=== PATIENT | female | born 1995 | race Caucasian/White ===

== ENCOUNTER 2020-07-03 01:59 | Emergency (ER) | payer OTHER ==
[~2020-07-03] VITALS: Ht 167.6 cm; Wt 72.0 kg
[2020-07-03] MEDS ORDERED: LORazepam 2 MG/ML VIAL IVP ONE (02:30)
[2020-07-03] MEDS ORDERED: HALOPERIDOL LACTATE 5 MG/ML VIAL ONE (02:55)
[2020-07-03] MEDS ORDERED: DiphenhydrAMINE HCL 50 MG/ML VIAL ONE (02:55)
[2020-07-03] MEDS ORDERED: DiphenhydrAMINE HCL 50 MG/ML VIAL IM ONE (03:00)
[2020-07-03] MEDS ORDERED: HALOPERIDOL LACTATE 5 MG/ML VIAL IM ONE (03:00)
[2020-07-03] MEDS ORDERED: LORazepam 2 MG/ML VIAL IM ONE (03:00)
[2020-07-03] MEDS ORDERED: GABA-1216 PO (03:27)
[2020-07-03] MEDS ORDERED: LITH300C3 PO (03:27)
[2020-07-03] MEDS ORDERED: ChlorproMAZINE HCL 50 MG/2 ML AMP IM ONE (03:45)
[2020-07-03 04:12] LABS: BASOPHILS % (AUTO) 0.3 % (0.0-2.0); EOSINOPHILS % (AUTO) 0.1 % (1.0-6.0); HEMATOCRIT 37.7 % (36-46); LYMPHOCYTES # (AUTO) 1.5 K/uL (1.0-4.8); LYMPHOCYTES % (AUTO) 21.5 % (22.0-44.0); MEAN CORPUSCULAR HEMOGLOBIN 26.2 pg (26.0-34.0); MEAN CORPUSCULAR HGB CONC 31.7 G/dL (31.0-37.0); MEAN CORPUSCULAR VOLUME 82 fL (80-100); MONOCYTES # (AUTO) 0.4 K/uL (0.1-1.0); MONOCYTES % (AUTO) 5.6 % (2.0-9.0); NEUTROPHILS # (AUTO) 4.9 K/uL (1.8-7.7); NEUTROPHILS % (AUTO) 72.5 % (40.0-70.0); PLATELET COUNT (AUTO) 373 K/uL (150-450); RED BLOOD CELL COUNT(AUTO) 4.57 MIL/uL (4.00-5.20); RED CELL DISTRIBUTION WIDTH 17.4 % (11.5-14.5)
[2020-07-03 04:14] LABS: ANION GAP 13 mmol/L (8-16); CALCIUM, TOTAL 9.6 mg/dL (8.8-10.5); CARBON DIOXIDE 22 mmol/L (22-29); CHLORIDE 101 mmol/L (98-107); CREATININE 1.01 mg/dL (0.60-1.30); GLOMERULAR FILTR. RATE CALC > 60 mL/min (>60); GLUCOSE,RANDOM 105 mg/dL (70-110); POTASSIUM 3.3 mmol/L (3.5-5.1); SODIUM SERUM 136 mmol/L (136-145); UREA NITROGEN, BLOOD 4 mg/dL (7-18)
[2020-07-03 04:20] LABS: ALANINE AMINOTRANSFERASE 34 U/L (12-78); ALBUMIN 3.8 g/dL (3.4-5.0); ALKALINE PHOSPHATASE 122 U/L (46-116); ASPARTATE AMINOTRANSFERASE 26 U/L (15-37); BILIRUBIN,TOTAL 0.6 mg/dL (0.1-1.0); TOTAL PROTEIN, SERUM 7.7 g/dL (6.4-8.2)
[2020-07-03 11:32] VITALS: BP 122/75
[2020-07-03] MEDS: POTASSIUM CHLORIDE 20 MEQ ER TABLET PO ONE ×2 (11:46→11:50)
== END 2020-07-03 13:08 | disposition home or self-care (01) ==
LOC: EMS 02:01
DX: F22 Delusional disorders (principal); E87.6 Hypokalemia; F15.10 Other stimulant abuse, uncomplicated; F12.90 Cannabis use, unspecified, uncomplicated; F17.290 Nicotine dependence, other tobacco product, uncomplicated
CPT/HCPCS: 80053; 85025; 96372; 99291; G0480; J1200; J1630; J2060; J3230

== ENCOUNTER 2020-11-22 21:02 | Emergency (ER) | payer OTHER ==
[~2020-11-22] VITALS: Ht 167.6 cm; Wt 65.9 kg
[~2020-11-22 21:02] MED LIST: GABA-1216 PO; LITH300C3 PO
[2020-11-22] MEDS ORDERED: OLAN7.5T22 PO (21:46)
[2020-11-22] MEDS ORDERED: DIVA-112 PO (21:46)
[2020-11-22 21:57] VITALS: BP 124/71
[2020-11-22 23:46] LABS: BASOPHILS % (AUTO) 0.2 % (0.0-2.0); EOSINOPHILS % (AUTO) 0.4 % (1.0-6.0); HEMATOCRIT 34.5 % (36-46); HEMOGLOBIN 11.1 g/dL (12.0-16.0); LYMPHOCYTES # (AUTO) 3.6 K/uL (1.0-4.8); LYMPHOCYTES % (AUTO) 29.9 % (22.0-44.0); MEAN CORPUSCULAR HEMOGLOBIN 27.1 pg (26.0-34.0); MEAN CORPUSCULAR HGB CONC 32.1 G/dL (31.0-37.0); MEAN CORPUSCULAR VOLUME 85 fL (80-100); MONOCYTES # (AUTO) 1.2 K/uL (0.1-1.0); NEUTROPHILS # (AUTO) 7.2 K/uL (1.8-7.7); NEUTROPHILS % (AUTO) 59.5 % (40.0-70.0); PLATELET COUNT (AUTO) 324 K/uL (150-450); RED BLOOD CELL COUNT(AUTO) 4.08 MIL/uL (4.00-5.20); RED CELL DISTRIBUTION WIDTH 16.4 % (11.5-14.5)
[2020-11-23 00:04] LABS: ANION GAP 6 mmol/L (8-16); CALCIUM, TOTAL 8.6 mg/dL (8.8-10.5); CARBON DIOXIDE 29 mmol/L (22-29); CHLORIDE 105 mmol/L (98-107); CREATININE 0.91 mg/dL (0.60-1.30); GLOMERULAR FILTR. RATE CALC > 60 mL/min (>60); GLUCOSE,RANDOM 80 mg/dL (70-110); POTASSIUM 4.1 mmol/L (3.5-5.1); SODIUM SERUM 140 mmol/L (136-145); UREA NITROGEN, BLOOD 12 mg/dL (7-18)
[2020-11-23 00:15] LABS: ALANINE AMINOTRANSFERASE 13 U/L (12-78); ALBUMIN 3.1 g/dL (3.4-5.0); ALKALINE PHOSPHATASE 90 U/L (46-116); ASPARTATE AMINOTRANSFERASE 14 U/L (15-37); BILIRUBIN,TOTAL 0.2 mg/dL (0.1-1.0); HCG,QUANTITATIVE < 1 mIU/mL (0-6); TOTAL PROTEIN, SERUM 7.2 g/dL (6.4-8.2)
== END 2020-11-23 | disposition left against medical advice (07) ==
LOC: EMS 21:04
DX: F22 Delusional disorders (principal); Z53.21 Procedure and treatment not carried out due to patient leaving prior to being seen by health care provider
CPT/HCPCS: 80053; 84702; 85025; G0480

== ENCOUNTER 2021-01-03 10:43 | Emergency (ER) | payer MEDICAID, OTHER ==
[~2021-01-03] VITALS: Ht 160 cm; Wt 65.0 kg
[~2021-01-03 10:43] MED LIST changes: +DIVA-112 PO; +OLAN7.5T22 PO
[2021-01-03 11:47] LABS: BASOPHILS % (AUTO) 0.9 % (0.0-2.0); EOSINOPHILS % (AUTO) 0.9 % (1.0-6.0); HEMATOCRIT 39.8 % (36-46); HEMOGLOBIN 12.6 g/dL (12.0-16.0); LYMPHOCYTES # (AUTO) 1.7 K/uL (1.0-4.8); MEAN CORPUSCULAR HEMOGLOBIN 27.2 pg (26.0-34.0); MEAN CORPUSCULAR HGB CONC 31.7 G/dL (31.0-37.0); MEAN CORPUSCULAR VOLUME 86 fL (80-100); MONOCYTES % (AUTO) 9.3 % (2.0-9.0); NEUTROPHILS # (AUTO) 7.8 K/uL (1.8-7.7); NEUTROPHILS % (AUTO) 72.9 % (40.0-70.0); PLATELET COUNT (AUTO) 304 K/uL (150-450); RED BLOOD CELL COUNT(AUTO) 4.64 MIL/uL (4.00-5.20); RED CELL DISTRIBUTION WIDTH 14.8 % (11.5-14.5)
[2021-01-03 11:55] LABS: ANION GAP 10 mmol/L (8-16); CALCIUM, TOTAL 9.7 mg/dL (8.8-10.5); CARBON DIOXIDE 24 mmol/L (22-29); CHLORIDE 103 mmol/L (98-107); CREATININE 0.77 mg/dL (0.60-1.30); GLOMERULAR FILTR. RATE CALC > 60 mL/min (>60); GLUCOSE,RANDOM 98 mg/dL (70-110); SODIUM SERUM 137 mmol/L (136-145); UREA NITROGEN, BLOOD 15 mg/dL (7-18)
[2021-01-03 12:04] LABS: ALANINE AMINOTRANSFERASE 45 U/L (12-78); ALBUMIN 3.9 g/dL (3.4-5.0); ALKALINE PHOSPHATASE 98 U/L (46-116); ASPARTATE AMINOTRANSFERASE 56 U/L (15-37); BILIRUBIN,TOTAL 0.5 mg/dL (0.1-1.0); HCG,QUANTITATIVE < 1 mIU/mL (0-6); TOTAL PROTEIN, SERUM 7.6 g/dL (6.4-8.2)
[2021-01-03 12:05] LABS: VALPROIC ACID < 3 mcg/mL (50-100)
[2021-01-03 12:08] LABS: LITHIUM < 0.20 mmol/L (0.60-1.20)
[2021-01-03 14:20] VITALS: BP 104/81
== END 2021-01-03 14:45 | disposition home or self-care (01) ==
LOC: EMS 10:47
DX: F25.9 Schizoaffective disorder, unspecified (principal); F31.9 Bipolar disorder, unspecified; F12.90 Cannabis use, unspecified, uncomplicated; F15.90 Other stimulant use, unspecified, uncomplicated; Z79.899 Other long term (current) drug therapy
CPT/HCPCS: 36415; 80053; 80164; 80178; 84702; 85025; 99284; G0480

== ENCOUNTER 2021-01-29 15:25 | Emergency (ER) | payer MEDICAID ==
[~2021-01-29] VITALS: Ht 167.6 cm; Wt 68.2 kg
[2021-01-29 15:42] VITALS: BP 120/65
== END 2021-01-29 17:37 | disposition left against medical advice (07) ==
LOC: EMS 15:30
DX: Z04.6 Encounter for general psychiatric examination, requested by authority (principal); Z53.21 Procedure and treatment not carried out due to patient leaving prior to being seen by health care provider

== ENCOUNTER 2021-06-14 11:27 | Emergency (ER) | payer MEDICAID ==
[~2021-06-14] VITALS: Ht 167.6 cm; Wt 77.3 kg
[2021-06-14] MEDS ORDERED: GABAPENTIN 100 MG CAPSULE PO ONE (12:30)
[2021-06-14] MEDS ORDERED: QUET300T2 PO (12:33)
[2021-06-14] MEDS ORDERED: RISP4TAB73 PO (12:35)
[2021-06-14] MEDS ORDERED: RisperiDONE 4 MG TABLET PO ONE (12:45)
[2021-06-14 14:14] VITALS: BP 125/65
== END 2021-06-14 14:16 | disposition home or self-care (01) ==
LOC: EMS 11:27
DX: F25.9 Schizoaffective disorder, unspecified (principal); F31.9 Bipolar disorder, unspecified; F12.90 Cannabis use, unspecified, uncomplicated; F15.90 Other stimulant use, unspecified, uncomplicated; Z79.899 Other long term (current) drug therapy; Z76.0 Encounter for issue of repeat prescription
CPT/HCPCS: 99283

== ENCOUNTER 2021-08-14 17:52 | Emergency (ER) | payer MEDICAID, OTHER ==
[~2021-08-14] VITALS: Ht 167.6 cm; Wt 85.0 kg
[~2021-08-14 17:52] MED LIST changes: +QUET300T2 PO; +RISP4TAB73 PO
[2021-08-14 18:01] VITALS: BP 139/86
[2021-08-14 19:19] LABS: BASOPHILS % (AUTO) 0.5 % (0.0-2.0); EOSINOPHILS % (AUTO) 0.9 % (1.0-6.0); HEMATOCRIT 38.9 % (36-46); HEMOGLOBIN 12.9 g/dL (12.0-16.0); LYMPHOCYTES # (AUTO) 2.7 K/uL (1.0-4.8); LYMPHOCYTES % (AUTO) 43.4 % (22.0-44.0); MEAN CORPUSCULAR HEMOGLOBIN 26.6 pg (26.0-34.0); MEAN CORPUSCULAR HGB CONC 33.1 G/dL (31.0-37.0); MEAN CORPUSCULAR VOLUME 80 fL (80-100); MONOCYTES # (AUTO) 0.5 K/uL (0.1-1.0); MONOCYTES % (AUTO) 8.7 % (2.0-9.0); NEUTROPHILS # (AUTO) 2.9 K/uL (1.8-7.7); NEUTROPHILS % (AUTO) 46.5 % (40.0-70.0); PLATELET COUNT (AUTO) 319 K/uL (150-450); RED BLOOD CELL COUNT(AUTO) 4.84 MIL/uL (4.00-5.20); RED CELL DISTRIBUTION WIDTH 16.4 % (11.5-14.5)
[2021-08-14 19:24] LABS: APPEARANCE,URINE CLEAR (CLEAR); BILIRUBIN,URINE NEGATIVE (NEGATIVE); GLUCOSE, URINE (UA) NEGATIVE (NEGATIVE); KETONES,URINE NEGATIVE (NEGATIVE); LEUKOCYTE ESTERASE ,URINE NEGATIVE (NEGATIVE); NITRATE,URINE NEGATIVE (NEGATIVE); OCCULT BLOOD,URINE NEGATIVE (NEGATIVE); PH,URINE 5.5 (5.0-8.0); PROTEIN,URINE TRACE mg/dL (NEGATIVE); SPECIFIC GRAVITIY, URINE 1.036 (1.003-1.030); UROBILINOGEN,URINE <=1.0 mg/dL (<=1.0)
[2021-08-14 19:25] LABS: ANION GAP 3 mmol/L (8-16); CALCIUM, TOTAL 9.3 mg/dL (8.8-10.5); CARBON DIOXIDE 30 mmol/L (22-29); CHLORIDE 108 mmol/L (98-107); GLOMERULAR FILTR. RATE CALC > 60 mL/min (>60); GLUCOSE,RANDOM 83 mg/dL (70-110); POTASSIUM 3.8 mmol/L (3.5-5.1); SODIUM SERUM 141 mmol/L (136-145); UREA NITROGEN, BLOOD 15 mg/dL (7-18)
[2021-08-14 19:30] LABS: ALANINE AMINOTRANSFERASE 15 U/L (12-78); ALBUMIN 3.7 g/dL (3.4-5.0); ALKALINE PHOSPHATASE 94 U/L (46-116); ASPARTATE AMINOTRANSFERASE 16 U/L (15-37); BILIRUBIN,TOTAL 0.4 mg/dL (0.1-1.0); TOTAL PROTEIN, SERUM 7.5 g/dL (6.4-8.2)
== END 2021-08-14 20:11 | disposition home or self-care (01) ==
LOC: EMS 17:59
DX: R00.2 Palpitations (principal); T50.995A Adverse effect of other drugs, medicaments and biological substances, initial encounter; F31.9 Bipolar disorder, unspecified; F20.9 Schizophrenia, unspecified; F12.90 Cannabis use, unspecified, uncomplicated; F15.90 Other stimulant use, unspecified, uncomplicated; Z79.899 Other long term (current) drug therapy; Y92.89 Other specified places as the place of occurrence of the external cause
CPT/HCPCS: 80053; 81003; 85025; 93005; 99284

== ENCOUNTER 2021-08-31 19:53 | Emergency (ER) | payer MEDICAID, OTHER ==
[~2021-08-31] VITALS: Ht 167.6 cm; Wt 198.0 kg
[2021-08-31 20:04] VITALS: BP 127/89
[2021-08-31] MEDS ORDERED: ALBUTEROL SULFATE 2.5 MG/0.5 ML NEB SOLUTION NEB ONE (21:30)
[2021-08-31 21:42] LABS: APPEARANCE,URINE CLEAR (CLEAR); BILIRUBIN,URINE NEGATIVE (NEGATIVE); GLUCOSE, URINE (UA) NEGATIVE (NEGATIVE); KETONES,URINE TRACE mg/dL (NEGATIVE); LEUKOCYTE ESTERASE ,URINE SMALL (NEGATIVE); NITRATE,URINE NEGATIVE (NEGATIVE); OCCULT BLOOD,URINE NEGATIVE (NEGATIVE); PH,URINE 5.5 (5.0-8.0); PROTEIN,URINE TRACE mg/dL (NEGATIVE); SPECIFIC GRAVITIY, URINE 1.032 (1.003-1.030); UROBILINOGEN,URINE <=1.0 mg/dL (<=1.0)
[2021-08-31 21:58] LABS: BACTERIA,URINE Moderate /HPF (None Seen); RBC,URINE 0-2 /HPF (0-2); SQUAMOUS EPITHELIAL CELL,UR Moderate /LPF (None Seen)
[2021-08-31 22:02] LABS: AMPHET/METH SCREEN,URINE NEGATIVE (NEGATIVE); BARBITURATE SCREEN, URINE NEGATIVE (NEGATIVE); BENZODIAZEPINES SCREEN,URINE NEGATIVE (NEGATIVE); CANNABINOID SCREEN,URINE NEGATIVE (NEGATIVE); COCAINE SCREEN,URINE NEGATIVE (NEGATIVE); METHADONE SCREEN, URINE NEGATIVE (NEGATIVE); OPIATE SCREEN,URINE NEGATIVE (NEGATIVE); PHENCYCLIDINE SCREEN,URINE NEGATIVE (NEGATIVE)
[2021-08-31] MEDS ORDERED: ALBU8.5H8 IH (22:34)
== END 2021-08-31 23:06 | disposition home or self-care (01) ==
LOC: EMS 19:54
DX: F41.9 Anxiety disorder, unspecified (principal); R06.02 Shortness of breath; T45.0X5A Adverse effect of antiallergic and antiemetic drugs, initial encounter; F20.9 Schizophrenia, unspecified; F31.9 Bipolar disorder, unspecified; F12.90 Cannabis use, unspecified, uncomplicated; F15.90 Other stimulant use, unspecified, uncomplicated; F17.210 Nicotine dependence, cigarettes, uncomplicated; Z79.899 Other long term (current) drug therapy; Y92.89 Other specified places as the place of occurrence of the external cause
CPT/HCPCS: 71046; 81001; 84703; 87086; 94640; 99284; J7613

== ENCOUNTER 2021-10-19 20:54 | Emergency (ER) | payer MEDICAID, OTHER ==
[~2021-10-19] VITALS: Ht 167.6 cm; Wt 90.0 kg
[~2021-10-19 20:54] MED LIST changes: +ALBU8.5H8 IH
[2021-10-19] MEDS ORDERED: SODIUM CHLORIDE 0.9% 1,000 ML IV ONE (22:15)
[2021-10-19 22:24] LABS: BASOPHILS % (AUTO) 0.5 % (0.0-2.0); EOSINOPHILS % (AUTO) 0.6 % (1.0-6.0); HEMATOCRIT 37.1 % (36-46); HEMOGLOBIN 12.3 g/dL (12.0-16.0); LYMPHOCYTES # (AUTO) 2.7 K/uL (1.0-4.8); LYMPHOCYTES % (AUTO) 36.7 % (22.0-44.0); MEAN CORPUSCULAR HEMOGLOBIN 27.3 pg (26.0-34.0); MEAN CORPUSCULAR HGB CONC 33.2 G/dL (31.0-37.0); MEAN CORPUSCULAR VOLUME 82 fL (80-100); MONOCYTES # (AUTO) 0.5 K/uL (0.1-1.0); MONOCYTES % (AUTO) 6.6 % (2.0-9.0); NEUTROPHILS % (AUTO) 55.6 % (40.0-70.0); PLATELET COUNT (AUTO) 346 K/uL (150-450); RED BLOOD CELL COUNT(AUTO) 4.51 MIL/uL (4.00-5.20); RED CELL DISTRIBUTION WIDTH 13.8 % (11.5-14.5)
[2021-10-19 22:32] LABS: ANION GAP 9 mmol/L (8-16); CALCIUM, TOTAL 9.5 mg/dL (8.8-10.5); CARBON DIOXIDE 30 mmol/L (22-29); CHLORIDE 100 mmol/L (98-107); CREATININE 0.78 mg/dL (0.60-1.30); GLOMERULAR FILTR. RATE CALC > 60 mL/min (>60); GLUCOSE,RANDOM 109 mg/dL (70-110); POTASSIUM 3.5 mmol/L (3.5-5.1); SODIUM SERUM 139 mmol/L (136-145); UREA NITROGEN, BLOOD 9 mg/dL (7-18)
[2021-10-19 22:44] LABS: LITHIUM < 0.20 mmol/L (0.60-1.20)
[2021-10-19 22:47] LABS: ALANINE AMINOTRANSFERASE 18 U/L (12-78); ALBUMIN 3.9 g/dL (3.4-5.0); ALKALINE PHOSPHATASE 100 U/L (46-116); ASPARTATE AMINOTRANSFERASE 18 U/L (15-37); BILIRUBIN,TOTAL 0.3 mg/dL (0.1-1.0); HCG,QUANTITATIVE < 1 mIU/mL (0-6); THYROID STIMULATING HORMONE 1.77 uIU/mL (0.36-3.74); TOTAL PROTEIN, SERUM 7.7 g/dL (6.4-8.2)
[2021-10-19 22:48] LABS: VALPROIC ACID < 3 mcg/mL (50-100)
[2021-10-19] MEDS ORDERED: ONDANSETRON HCL 4 MG TABLET PO ONE (23:45)
[2021-10-20 00:24] LABS: COVID AG,FIA SOURCE NASOPHARYNGEAL
[2021-10-20 00:50] LABS: APPEARANCE,URINE CLEAR (CLEAR); BILIRUBIN,URINE NEGATIVE (NEGATIVE); GLUCOSE, URINE (UA) NEGATIVE (NEGATIVE); KETONES,URINE NEGATIVE (NEGATIVE); LEUKOCYTE ESTERASE ,URINE NEGATIVE (NEGATIVE); NITRATE,URINE NEGATIVE (NEGATIVE); OCCULT BLOOD,URINE NEGATIVE (NEGATIVE); PH,URINE 6.5 (5.0-8.0); PROTEIN,URINE NEGATIVE (NEGATIVE); SPECIFIC GRAVITIY, URINE 1.005 (1.003-1.030); UROBILINOGEN,URINE <=1.0 mg/dL (<=1.0)
[2021-10-20 00:57] LABS: AMPHET/METH SCREEN,URINE NEGATIVE (NEGATIVE); BARBITURATE SCREEN, URINE NEGATIVE (NEGATIVE); BENZODIAZEPINES SCREEN,URINE NEGATIVE (NEGATIVE); CANNABINOID SCREEN,URINE NEGATIVE (NEGATIVE); COCAINE SCREEN,URINE NEGATIVE (NEGATIVE); METHADONE SCREEN, URINE NEGATIVE (NEGATIVE); OPIATE SCREEN,URINE NEGATIVE (NEGATIVE); PHENCYCLIDINE SCREEN,URINE NEGATIVE (NEGATIVE)
[2021-10-20 01:30] VITALS: BP 119/59
== END 2021-10-20 01:42 | disposition home or self-care (01) ==
LOC: EMS 20:56
DX: R55 Syncope and collapse (principal); F41.9 Anxiety disorder, unspecified; F25.9 Schizoaffective disorder, unspecified; R51.9 Headache, unspecified; F31.9 Bipolar disorder, unspecified; F17.210 Nicotine dependence, cigarettes, uncomplicated; F12.90 Cannabis use, unspecified, uncomplicated; F15.90 Other stimulant use, unspecified, uncomplicated; Z20.822 Contact with and (suspected) exposure to COVID-19
CPT/HCPCS: 36415; 70450; 80053; 80164; 80178; 80307; 81003; 84443; 84702; 85025; 87426; 93005; 96360; 99285; G0480; J7030; Q0162

== ENCOUNTER 2021-11-08 16:24 | Emergency (ER) | payer MEDICAID ==
[~2021-11-08] VITALS: Ht 167.6 cm; Wt 86.4 kg
[2021-11-08 16:55] VITALS: BP 112/76
[2021-11-08] MEDS ORDERED: PALI39DI IM (16:58)
[2021-11-08] MEDS ORDERED: ESCI-8 PO (16:58)
[2021-11-08] MEDS ORDERED: BENZ0.5T49 PO (16:58)
[2021-11-08] MEDS ORDERED: ACETAMINOPHEN 500 MG TABLET PO ONE (18:00)
[2021-11-08] MEDS ORDERED: ACET-66 PO (18:17)
== END 2021-11-08 18:49 | disposition home or self-care (01) ==
LOC: EMS 16:25
DX: N64.4 Mastodynia (principal); F31.9 Bipolar disorder, unspecified; F41.9 Anxiety disorder, unspecified; F20.9 Schizophrenia, unspecified; Z87.891 Personal history of nicotine dependence; Z79.899 Other long term (current) drug therapy
CPT/HCPCS: 99282; Z7502; Z7610

== ENCOUNTER 2021-12-06 12:47 | Emergency (ER) | payer MEDICAID, OTHER ==
[~2021-12-06] VITALS: Ht 167.6 cm; Wt 90.9 kg
[~2021-12-06 12:47] MED LIST changes: +ACET-66 PO; +BENZ0.5T49 PO; -DIVA-112 PO; +ESCI-8 PO; -LITH300C3 PO; +PALI39DI IM; -RISP4TAB73 PO
[2021-12-06 14:10] LABS: EOSINOPHILS % (AUTO) 0.2 % (1.0-6.0); HEMATOCRIT 36.4 % (36-46); LYMPHOCYTES # (AUTO) 1.6 K/uL (1.0-4.8); LYMPHOCYTES % (AUTO) 17.3 % (22.0-44.0); MEAN CORPUSCULAR HEMOGLOBIN 26.7 pg (26.0-34.0); MEAN CORPUSCULAR HGB CONC 32.9 G/dL (31.0-37.0); MEAN CORPUSCULAR VOLUME 81 fL (80-100); MONOCYTES # (AUTO) 0.6 K/uL (0.1-1.0); MONOCYTES % (AUTO) 6.2 % (2.0-9.0); NEUTROPHILS % (AUTO) 75.3 % (40.0-70.0); PLATELET COUNT (AUTO) 327 K/uL (150-450); RED BLOOD CELL COUNT(AUTO) 4.48 MIL/uL (4.00-5.20); RED CELL DISTRIBUTION WIDTH 13.7 % (11.5-14.5)
[2021-12-06 14:22] LABS: ANION GAP 11 mmol/L (8-16); CALCIUM, TOTAL 9.2 mg/dL (8.8-10.5); CARBON DIOXIDE 24 mmol/L (22-29); CHLORIDE 103 mmol/L (98-107); CREATININE 0.74 mg/dL (0.60-1.30); GLOMERULAR FILTR. RATE CALC > 60 mL/min (>60); GLUCOSE,RANDOM 92 mg/dL (70-110); POTASSIUM 3.6 mmol/L (3.5-5.1); SODIUM SERUM 138 mmol/L (136-145); UREA NITROGEN, BLOOD 12 mg/dL (7-18)
[2021-12-06 14:24] LABS: PROTHROMBIN TIME 10.5 SEC (9.4-11.6)
[2021-12-06 14:28] LABS: ALANINE AMINOTRANSFERASE 19 U/L (12-78); ALBUMIN 3.9 g/dL (3.4-5.0); ALKALINE PHOSPHATASE 92 U/L (46-116); ASPARTATE AMINOTRANSFERASE 14 U/L (15-37); BILIRUBIN,TOTAL 0.4 mg/dL (0.1-1.0); LIPASE 141 U/L (73-393); TOTAL PROTEIN, SERUM 7.5 g/dL (6.4-8.2)
[2021-12-06 15:01] LABS: APPEARANCE,URINE CLEAR (CLEAR); BILIRUBIN,URINE NEGATIVE (NEGATIVE); GLUCOSE, URINE (UA) NEGATIVE (NEGATIVE); KETONES,URINE NEGATIVE (NEGATIVE); LEUKOCYTE ESTERASE ,URINE NEGATIVE (NEGATIVE); NITRATE,URINE NEGATIVE (NEGATIVE); OCCULT BLOOD,URINE NEGATIVE (NEGATIVE); PROTEIN,URINE NEGATIVE (NEGATIVE); SPECIFIC GRAVITIY, URINE 1.006 (1.003-1.030); UROBILINOGEN,URINE <=1.0 mg/dL (<=1.0)
[2021-12-06 15:22] VITALS: BP 122/70
== END 2021-12-06 15:33 | disposition home or self-care (01) ==
LOC: EMS 12:48
DX: R10.12 Left upper quadrant pain (principal); F31.9 Bipolar disorder, unspecified; F41.9 Anxiety disorder, unspecified; F20.9 Schizophrenia, unspecified; Z87.891 Personal history of nicotine dependence; Z79.899 Other long term (current) drug therapy
CPT/HCPCS: 80053; 81003; 83690; 84703; 85025; 85610; 85730; 93005; 99284

== ENCOUNTER 2023-04-25 22:47 | Inpatient (IN) | payer MEDICAID, OTHER ==
[~2023-04-25] VITALS: Ht 167.6 cm; Wt 70.3 kg
[~2023-04-25 22:47] MED LIST changes: -BENZ0.5T49 PO; +BENZ0.5T6 PO
[2023-04-25] MEDS ORDERED: ZOLPIDEM TARTRATE 10 MG TABLET PO PRN (23:30)
[2023-04-26 00:06] LABS: GLUCOMETER DEV NAME(LOC) POC.BV; POC SARS-COV2 AG, FIA NEGATIVE (NEGATIVE)
[2023-04-26 01:33] VITALS: BP 123/70; PULSE 91; RESP 18; TEMP 97.4; O2SAT 99
[2023-04-26] MEDS ORDERED: INFLUENZA VIRUS VACCINE QVS 2023-24 (6MO+)/PF 60 MCG/0.5 ML SYRINGE IM. ONE (02:30)
[2023-04-26 08:12] LABS: BASOPHILS % (AUTO) 0.5 % (0.0-2.0); HEMATOCRIT 35.3 % (36-46); HEMOGLOBIN 11.6 g/dL (12.0-16.0); LYMPHOCYTES # (AUTO) 2.6 K/uL (1.0-4.8); LYMPHOCYTES % (AUTO) 54.2 % (22.0-44.0); MEAN CORPUSCULAR HEMOGLOBIN 27.9 pg (26.0-34.0); MEAN CORPUSCULAR HGB CONC 32.9 G/dL (31.0-37.0); MEAN CORPUSCULAR VOLUME 85 fL (80-100); MONOCYTES # (AUTO) 0.4 K/uL (0.1-1.0); MONOCYTES % (AUTO) 8.1 % (2.0-9.0); NEUTROPHILS # (AUTO) 1.8 K/uL (1.8-7.7); NEUTROPHILS % (AUTO) 36.2 % (40.0-70.0); PLATELET COUNT (AUTO) 334 K/uL (150-450); RED BLOOD CELL COUNT(AUTO) 4.16 MIL/uL (4.00-5.20); WHITE BLOOD COUNT (AUTO) 4.9 K/uL (4.5-11.0)
[2023-04-26 08:16] VITALS: BP 101/61; PULSE 78; RESP 16; TEMP 98; O2SAT 100
[2023-04-26 09:06] LABS: CHOL/HDL RATIO 3.7 (3.9-5.7); FREE T4 (FREE THYROXINE) 1.01 ng/dL (0.76-1.46); THYROID STIMULATING HORMONE 2.61 uIU/mL (0.36-3.74)
[2023-04-26] MEDS: LORazepam 2 MG TABLET PO PRN ×2 (15:15→20:50)
[2023-04-26] MEDS: OLANZapine 5 MG RAPDIS TABLET PO PRN (15:15)
[2023-04-26] MEDS ORDERED: MAG HYDROX/ALUMINUM HYD/SIMETH ES 30 ML SUSPENSION UDCUP PO PRN (15:45)
[2023-04-26] MEDS ORDERED: ACETAMINOPHEN 325 MG TABLET PO PRN (15:45)
[2023-04-26] MEDS ORDERED: ALBUTEROL SULFATE HFA 90 MCG/PUFF 8 GM INHALER IH PRN (15:45)
[2023-04-26] MEDS ORDERED: IBUPROFEN 400 MG TABLET PO PRN (15:45)
[2023-04-26] MEDS ORDERED: DOCUSATE SODIUM 100 MG CAPSULE PO PRN (15:45)
[2023-04-26] MEDS ORDERED: MAGNESIUM HYDROXIDE SUSPENSION 30 ML UDCUP PO PRN (15:45)
[2023-04-26] MEDS ORDERED: ONDANSETRON HCL 4 MG TABLET PO PRN (15:45)
[2023-04-26] MEDS ORDERED: CloNIDine HCL 0.1 MG TABLET PO PRN (15:45)
[2023-04-26] MEDS ORDERED: PETROLATUM,WHITE 28 GM JELLY TP PRN (15:45)
[2023-04-26] MEDS ORDERED: NICOTINE 14 MG/24 HOUR PATCH TD PRN (15:45)
[2023-04-26] MEDS ORDERED: LOPERAMIDE HCL 2 MG CAPSULE PO PRN (15:45)
[2023-04-26] MEDS ORDERED: GuaiFENesin/D-METHORPHAN [SUGAR-FREE] 200-20MG/10 ML SYRUP UDCUP PO PRN (15:45)
[2023-04-26] MEDS ORDERED: ALBU18HF12 IH (15:50)
[2023-04-26 22:15] VITALS: RESP 20; TEMP 97.9
[2023-04-27 08:15] VITALS: BP 100/62; PULSE 69; RESP 16; TEMP 97.2; O2SAT 97
[2023-04-27] MEDS: BICTEGRAV/EMTRICIT/TENOFOV ALA 50-200-25 MG TABLET PO SCH (08:22)
[2023-04-27] MEDS: GABAPENTIN 100 MG CAPSULE PO SCH (08:23)
[2023-04-27] MEDS: LORazepam 2 MG TABLET PO PRN (08:23)
[2023-04-27 08:47] LABS: HEMOGLOBIN A1C 4.9 % (3.8-5.6)
[2023-04-27 08:49] LABS: HCG,QUAL URINE NEGATIVE (NEGATIVE)
[2023-04-27 08:50] LABS: APPEARANCE,URINE CLEAR (CLEAR); BILIRUBIN,URINE NEGATIVE (NEGATIVE); COLOR,URINE YELLOW (YELLOW); GLUCOSE, URINE (UA) NEGATIVE (NEGATIVE); KETONES,URINE NEGATIVE (NEGATIVE); LEUKOCYTE ESTERASE ,URINE NEGATIVE (NEGATIVE); NITRATE,URINE NEGATIVE (NEGATIVE); OCCULT BLOOD,URINE NEGATIVE (NEGATIVE); PH,URINE 6.5 (5.0-8.0); PH,URINE DRUG SCREEN 6.5 (5.0-8.0); PROTEIN,URINE NEGATIVE (NEGATIVE); SPECIFIC GRAVITIY, URINE 1.024 (1.003-1.030); UROBILINOGEN,URINE <=1.0 mg/dL (<=1.0)
[2023-04-27 08:56] LABS: ALCOHOL, URINE DRUG SCREEN NEGATIVE (NEGATIVE); AMPHET/METH SCREEN,URINE NEGATIVE (NEGATIVE); BARBITURATE SCREEN, URINE NEGATIVE (NEGATIVE); BENZODIAZEPINES SCREEN,URINE NEGATIVE (NEGATIVE); CANNABINOID SCREEN,URINE NEGATIVE (NEGATIVE); COCAINE SCREEN,URINE NEGATIVE (NEGATIVE); METHADONE SCREEN, URINE NEGATIVE (NEGATIVE); OPIATE SCREEN,URINE NEGATIVE (NEGATIVE); PHENCYCLIDINE SCREEN,URINE NEGATIVE (NEGATIVE)
[2023-04-27 09:06] LABS: CHOL/HDL RATIO 3.8 (3.9-5.7); THYROID STIMULATING HORMONE 1.52 uIU/mL (0.36-3.74)
[2023-04-27] MEDS: OLANZapine 5 MG TABLET PO SCH ×2 (11:19→20:09)
[2023-04-27 23:59] VITALS: BP 100/63; PULSE 68; RESP 18; TEMP 97.5
[2023-04-28 08:38] VITALS: BP 101/60; PULSE 72; RESP 17; TEMP 97.7; O2SAT 98
[2023-04-28] MEDS: GABAPENTIN 100 MG CAPSULE PO SCH (08:40)
[2023-04-28] MEDS: OLANZapine 5 MG TABLET PO SCH ×2 (08:40→21:00)
[2023-04-28] MEDS: BICTEGRAV/EMTRICIT/TENOFOV ALA 50-200-25 MG TABLET PO SCH (08:41)
[2023-04-28 20:55] VITALS: BP 96/50; PULSE 89; RESP 19; TEMP 98.1; O2SAT 98
[2023-04-29 08:53] VITALS: BP_SYST 106; BP_SYST 120; BP_DIAS 57; BP_DIAS 73; PULSE 100; RESP 16; RESP 17; TEMP 97.3; TEMP 98.2; O2SAT 97; O2SAT 98
[2023-04-29] MEDS: GABAPENTIN 100 MG CAPSULE PO SCH (09:04)
[2023-04-29] MEDS: BICTEGRAV/EMTRICIT/TENOFOV ALA 50-200-25 MG TABLET PO SCH (09:04)
[2023-04-29] MEDS: OLANZapine 5 MG RAPDIS TABLET PO PRN (09:04)
[2023-04-29] MEDS: OLANZapine 5 MG TABLET PO SCH (10:09)
[2023-04-29] MEDS ORDERED: OLAN5TAB52 PO ×2 (13:57→15:06)
[2023-04-29] MEDS ORDERED: BICT1TAB PO (13:58)
== END 2023-04-29 14:35 | disposition home or self-care (01) | DRG 750 ==
LOC: B3A 23:23
PROVIDERS: ADMIT Psychiatry & Neurology Child & Adolescent Psychiatry; ATTEND Psychiatry & Neurology Child & Adolescent Psychiatry
DX: F20.9 Schizophrenia, unspecified (principal); D64.9 Anemia, unspecified; G47.00 Insomnia, unspecified; Z20.822 Contact with and (suspected) exposure to COVID-19; Z79.899 Other long term (current) drug therapy
CPT/HCPCS: 80061; 80307; 81003; 83036; 84439; 84443; 84703; 85025; Q9967

== ENCOUNTER 2023-07-20 11:21 | Emergency (ER) | payer MEDICAID, OTHER ==
[~2023-07-20] VITALS: Ht 165.1 cm; Wt 56.8 kg
[~2023-07-20 11:21] MED LIST changes: -ACET-66 PO; -ALBU8.5H8 IH; -BENZ0.5T6 PO; +BICT1TAB PO; -ESCI-8 PO; +OLAN5TAB52 PO; -OLAN7.5T22 PO; -PALI39DI IM; -QUET300T2 PO
[2023-07-20 12:57] LABS: BASOPHILS % (AUTO) 0.4 % (0.0-2.0); EOSINOPHILS % (AUTO) 1.7 % (1.0-6.0); HEMATOCRIT 39.5 % (36-46); HEMOGLOBIN 12.5 g/dL (12.0-16.0); LYMPHOCYTES # (AUTO) 2.1 K/uL (1.0-4.8); LYMPHOCYTES % (AUTO) 35.6 % (22.0-44.0); MEAN CORPUSCULAR HEMOGLOBIN 26.9 pg (26.0-34.0); MEAN CORPUSCULAR HGB CONC 31.8 G/dL (31.0-37.0); MEAN CORPUSCULAR VOLUME 85 fL (80-100); MONOCYTES # (AUTO) 0.6 K/uL (0.1-1.0); MONOCYTES % (AUTO) 9.9 % (2.0-9.0); NEUTROPHILS # (AUTO) 3.1 K/uL (1.8-7.7); NEUTROPHILS % (AUTO) 52.4 % (40.0-70.0); PLATELET COUNT (AUTO) 290 K/uL (150-450); RED BLOOD CELL COUNT(AUTO) 4.67 MIL/uL (4.00-5.20); RED CELL DISTRIBUTION WIDTH 14.2 % (11.5-14.5)
[2023-07-20 13:09] LABS: ANION GAP 7 mmol/L (8-16); CALCIUM, TOTAL 9.2 mg/dL (8.8-10.5); CARBON DIOXIDE 28 mmol/L (22-29); CHLORIDE 104 mmol/L (98-107); CREATININE 0.79 mg/dL (0.60-1.30); GLOMERULAR FILTR. RATE CALC > 60 mL/min (>60); GLUCOSE,RANDOM 81 mg/dL (70-110); POTASSIUM 3.8 mmol/L (3.5-5.1); SODIUM SERUM 139 mmol/L (136-145); UREA NITROGEN, BLOOD 12 mg/dL (7-18)
[2023-07-20 13:17] LABS: APPEARANCE,URINE CLEAR (CLEAR); BILIRUBIN,URINE NEGATIVE (NEGATIVE); COLOR,URINE LIGHT YELLOW (YELLOW); GLUCOSE, URINE (UA) NEGATIVE (NEGATIVE); KETONES,URINE NEGATIVE (NEGATIVE); LEUKOCYTE ESTERASE ,URINE NEGATIVE (NEGATIVE); NITRATE,URINE NEGATIVE (NEGATIVE); OCCULT BLOOD,URINE NEGATIVE (NEGATIVE); PROTEIN,URINE NEGATIVE (NEGATIVE); SPECIFIC GRAVITIY, URINE 1.009 (1.003-1.030); UROBILINOGEN,URINE <=1.0 mg/dL (<=1.0)
[2023-07-20 13:20] LABS: ALANINE AMINOTRANSFERASE 23 U/L (12-78); ALBUMIN 3.8 g/dL (3.4-5.0); ALKALINE PHOSPHATASE 100 U/L (46-116); ASPARTATE AMINOTRANSFERASE 18 U/L (15-37); BILIRUBIN,TOTAL 0.5 mg/dL (0.1-1.0); HCG,QUANTITATIVE < 1 mIU/mL (0-6); TOTAL PROTEIN, SERUM 7.2 g/dL (6.4-8.2)
[2023-07-20 14:37] VITALS: TEMP 98
[2023-07-20 15:10] VITALS: BP 116/81; PULSE 95; RESP 18
== END 2023-07-20 15:17 | disposition home or self-care (01) ==
LOC: EMS 11:21
DX: N93.9 Abnormal uterine and vaginal bleeding, unspecified (principal); F25.9 Schizoaffective disorder, unspecified; F41.9 Anxiety disorder, unspecified; J45.909 Unspecified asthma, uncomplicated; F31.9 Bipolar disorder, unspecified; Z87.891 Personal history of nicotine dependence
CPT/HCPCS: 76801; 80053; 81003; 84702; 85025; 86901; 99284

== ENCOUNTER 2023-07-20 18:17 | Emergency (ER) | payer OTHER ==
[~2023-07-20] VITALS: Ht 165.1 cm; Wt 56.8 kg
[2023-07-20 18:30] VITALS: TEMP 98.7
[2023-07-20 21:50] VITALS: BP 117/68; PULSE 95; RESP 18
== END 2023-07-20 22:09 | disposition home or self-care (01) ==
LOC: EMS 18:18
DX: F41.9 Anxiety disorder, unspecified (principal); M79.672 Pain in left foot; M79.671 Pain in right foot; F25.9 Schizoaffective disorder, unspecified; J45.909 Unspecified asthma, uncomplicated; F31.9 Bipolar disorder, unspecified; Z87.891 Personal history of nicotine dependence
CPT/HCPCS: 99283; Z7502

== ENCOUNTER → 2024-12-08 | Emergency (ER) | payer OTHER | END | disposition left against medical advice (07) | LOC: EMS 00:53 | DX: F22 Delusional disorders (principal); Z53.21 Procedure and treatment not carried out due to patient leaving prior to being seen by health care provider ==